=== PATIENT | female | born 1995 | race Caucasian/White ===

== ENCOUNTER 2017-07-14 13:13 | Emergency (ER) | payer OTHER, BC ==
[~2017-07-14] VITALS: Ht 167.6 cm; Wt 70.3 kg
[~2017-07-14 13:13] MED LIST: CYCL5TAB PO; HYDR-79 PO
[2017-07-14] MEDS ORDERED: 0.9 % SODIUM CHLORIDE 10 ML DISP.SYRIN. IV PRN (13:30)
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
[2017-07-14 13:54] LABS: BASO % 0 % (0-3); EOS # 0.1 x10^3/uL (0.0-0.7); EOS % 1 % (0-3); LYMPH # 1.6 x10^3/uL (1.0-4.8); LYMPH % 22 % (24-48); MEAN CORPUSCULAR HEMOGLOBIN 31 pg (25-35); MEAN CORPUSCULAR HGB CONC 34 g/dL (31-37); MEAN CORPUSCULAR VOLUME 91 fL (79-100); MONO # 0.6 x10^3/uL (0.0-1.1); MONO % 8 % (0-9); NEUT % 69 % (31-73); PLATELET COUNT 207 x10^3/uL (140-400); RED BLOOD COUNT 4.52 x10^6/uL (3.50-5.40); RED CELL DISTRIBUTION WIDTH 13.6 % (11.5-14.5); WHITE BLOOD COUNT 7.3 x10^3/uL (4.0-11.0)
[2017-07-14] MEDS ORDERED: IV NORMAL SALINE 1,000ML 1,000 ML IV SCH (14:00)
[2017-07-14] MEDS ORDERED: HYDROmorphone PF 2 MG/ML VIAL IV/SQ PRN (14:00)
[2017-07-14] MEDS ORDERED: ONDANSETRON PF 4 MG/2 ML VIAL. IV ONE (14:00)
[2017-07-14] MEDS ORDERED: IOHEXOL 300 MG/ML 75 ML VIAL. IV ONE (14:00)
[2017-07-14 14:08] LABS: ALBUMIN 3.8 g/dL (3.4-5.0); CREATININE 0.8 mg/dL (0.6-1.0); DIRECT BILIRUBIN 0.1 mg/dL (0.0-0.2); GFR 91.4; POTASSIUM 4.1 mmol/L (3.5-5.1); TOTAL BILIRUBIN 0.4 mg/dL (0.2-1.0); TOTAL PROTEIN 7.3 g/dL (6.4-8.2)
[2017-07-14 14:27] LABS: AMPHETAMINE/METHAMPHETAMINE NEG (NEG); BARBITURATES NEG (NEG); BENZODIAZEPINES NEG (NEG); CANNABINOIDS NEG (NEG); COCAINE NEG (NEG); METHADONE NEG (NEG); OPIATES NEG (NEG); PHENCYCLIDINE NEG (NEG)
[2017-07-14 14:28] LABS: BACTERIA,URINE FEW /HPF (0-FEW); BILIRUBIN,URINE NEG (NEG); CLARITY,URINE HAZY; COLOR,URINE YELLOW; GLUCOSE,URINE NEG (NEG); NITRITE,URINE NEG (NEG); SQUAMOUS EPITHELIAL CELL,UR MOD /LPF; UROBILINOGEN,URINE 0.2 mg/dL (0.2 mg/dL)
[2017-07-14 14:29] LABS: AMORPHOUS SEDIMENT,UR PRESENT /HPF
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
[2017-07-14] MEDS ORDERED: METH-38 PO (14:57)
[2017-07-14] MEDS ORDERED: HYDR-2758 PO (14:57)
[2017-07-14] MEDS ORDERED: NAPR275T59 PO (14:57)
[2017-07-14 15:00] VITALS: BP 135/88
== END 2017-07-14 15:03 | disposition home or self-care (01) ==
LOC: ER 13:13
DX: S33.5XXA Sprain of ligaments of lumbar spine, initial encounter (principal); S23.3XXA Sprain of ligaments of thoracic spine, initial encounter; S30.1XXA Contusion of abdominal wall, initial encounter; Z88.2 Allergy status to sulfonamides; Z88.0 Allergy status to penicillin; Z88.1 Allergy status to other antibiotic agents; Z88.8 Allergy status to other drugs, medicaments and biological substances; V43.53XA Car driver injured in collision with pick-up truck in traffic accident, initial encounter; Y93.89 Activity, other specified; Y92.411 Interstate highway as the place of occurrence of the external cause; Y99.8 Other external cause status
CPT/HCPCS: 36415; 72128; 74177; 80048; 80076; 80307; 81001; 81025; 83690; 85025; 86850; 86900; 86901; 96361; 96374; 96375; 99285; G0480; J1170; J2405; Q9967; G0479; J7030

== ENCOUNTER → 2017-07-23 | Outpatient (CLI) | payer OTHER, BC ==
[2017-07-14 15:00] VITALS: BP 135/88
[~2017-07-23] MED LIST changes: +HYDR-2758 PO; +METH-38 PO; +NAPR275T59 PO
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
== END | disposition home or self-care (01) ==
LOC: DXRADRC 09:52
PROVIDERS: ATTEND Nurse Practitioner Family
DX: R07.81 Pleurodynia (principal); V89.2XXA Person injured in unspecified motor-vehicle accident, traffic, initial encounter; Y93.89 Activity, other specified; Y92.89 Other specified places as the place of occurrence of the external cause; Y99.8 Other external cause status
CPT/HCPCS: 71111

== ENCOUNTER → 2017-09-09 | Outpatient (CLI) | payer BC ==
--- NOTE | 2017-09-09 13:44 | RAD ---
Indication: Prolonged use of Doppler. Bone mineral analysis of the lumbar spine and right forearm was performed. Bone mineral density of the lumbar spine from L1 to L4 is 1.296 with a T score of 1.0. The bone mineral density of the radius is 0.456 with a T score -1.9. 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
== END | disposition home or self-care (01) ==
LOC: DXRAD 12:50
PROVIDERS: ATTEND Obstetrics & Gynecology
DX: M85.88 Other specified disorders of bone density and structure, other site (principal)
CPT/HCPCS: 77080

== ENCOUNTER 2019-01-29 01:58 | Emergency (ER) | payer BC, OTHER ==
[~2019-01-29] VITALS: Ht 162.6 cm; Wt 82.0 kg
[~2019-01-29 01:58] MED LIST changes: +HYDR-1179 PO; +HYDR-2155 PO; -HYDR-2758 PO; -HYDR-79 PO
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
[2019-01-29] MEDS ORDERED: MVI, ADULT NO.4 WITH VIT K 10 ML, FOLIC ACID SYRINGE for ER 1 MG, THIAMINE INJ 100 MG i... IV ONE ×4 (02:15)
[2019-01-29] MEDS ORDERED: THIAMINE 200 MG/2 ML VIAL. IV ONE (02:28)
[2019-01-29] MEDS ORDERED: FOLIC ACID 5 MG/ML SYRINGE for ER IV ONE (02:29)
[2019-01-29] MEDS ORDERED: MVI, ADULT NO.4 WITH VIT K 10 ML VIAL IV ONE (02:29)
[2019-01-29 02:50] LABS: BASO % 1 % (0-3); EOS # 0.1 x10^3/uL (0.0-0.7); EOS % 2 % (0-3); HEMATOCRIT 40.9 % (36.0-47.0); HEMOGLOBIN 13.9 g/dL (12.0-15.5); LYMPH # 1.8 x10^3/uL (1.0-4.8); LYMPH % 29 % (24-48); MEAN CORPUSCULAR HEMOGLOBIN 32 pg (25-35); MEAN CORPUSCULAR HGB CONC 34 g/dL (31-37); MEAN CORPUSCULAR VOLUME 94 fL (79-100); MONO # 0.4 x10^3/uL (0.0-1.1); MONO % 7 % (0-9); NEUT # 3.7 x10^3uL (1.8-7.7); NEUT % 62 % (31-73); PLATELET COUNT 164 x10^3/uL (140-400); RED BLOOD COUNT 4.35 x10^6/uL (3.50-5.40); RED CELL DISTRIBUTION WIDTH 12.6 % (11.5-14.5)
[2019-01-29 02:55] LABS: AMPHETAMINE/METHAMPHETAMINE NEG (NEG); BARBITURATES NEG (NEG); BENZODIAZEPINES NEG (NEG); CANNABINOIDS POS (NEG); COCAINE NEG (NEG); METHADONE NEG (NEG); OPIATES NEG (NEG); PHENCYCLIDINE NEG (NEG)
[2019-01-29 03:00] LABS: CALCIUM 8.9 mg/dL (8.5-10.1); CREATININE 0.8 mg/dL (0.6-1.0); DIRECT BILIRUBIN 0.1 mg/dL (0.0-0.2); GFR 90.5; MAGNESIUM 1.9 mg/dL (1.8-2.4); POTASSIUM 3.3 mmol/L (3.5-5.1); TOTAL BILIRUBIN 0.4 mg/dL (0.2-1.0); TOTAL PROTEIN 7.5 g/dL (6.4-8.2)
[2019-01-29 03:11] LABS: BILIRUBIN,URINE NEG (NEG); CLARITY,URINE CLEAR; COLOR,URINE YELLOW; GLUCOSE,URINE NEG (NEG)
[2019-01-29 03:12] LABS: BACTERIA,URINE FEW /HPF (0-FEW); NITRITE,URINE NEG (NEG); RBC,URINE OCC /HPF (0-2); SQUAMOUS EPITHELIAL CELL,UR FEW /LPF; UROBILINOGEN,URINE 0.2 mg/dL (0.2 mg/dL)
[2019-01-29 03:41] VITALS: BP 108/68
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
[2019-01-29] MEDS ORDERED: POTASSIUM CHLORIDE 20 MEQ/15 ML ORAL LIQUID. PEG ONE (04:00)
[2019-01-29] MEDS ORDERED: oxyCODONE/APAP 5/325 1 TAB TABLET PO ONE (04:00)
--- NOTE | 2019-01-29 06:47 | EKG ---
[address] [address] Test Date: 2019-01-29 Test Time: 02:36:41 Pat Name: MARY MOSCOSO Department: Room: Gender: F [employer]: MASON : 1995 Requested By: MING BAIRD Order Number: [id number] Reading MD: Tayo Sutton MD Measurements Intervals [place] Rate: 95 P: 36 AR: 164 QRS: -7 QRSD: 92 T: 41 QT: 368 QTc: 466 Interpretive Statements SINUS RHYTHM Electronically Signed On 02-23-2019 15:00:08 CDT by Tayo Sutton MD
--- NOTE | 2019-01-29 08:13 | RAD ---
Two-view abdomen radiographs 01/29/2019 CLINICAL HISTORY: Abdominal pain. Two AP supine and an AP erect digital radiographs of the abdomen/pelvis were obtained. The lung bases are clear. The abdominal bowel gas pattern is nonobstructive. A small calcification is seen within the left pelvis consistent with a phlebolith. No radiopaque calculus is seen. Minimal S-shaped curvature of the thoracolumbar spine is noted. The osseous structures are grossly intact. IMPRESSION: No acute abnormality is seen. Electronically signed by: Luis Vides MD (01/29/2019 8:11 AM) [facility]
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
== END 2019-01-29 04:15 | disposition home or self-care (01) ==
LOC: ER 01:58
DX: S80.02XA Contusion of left knee, initial encounter (principal); R42 Dizziness and giddiness; E87.6 Hypokalemia; Z72.0 Tobacco use; F10.10 Alcohol abuse, uncomplicated; Z88.2 Allergy status to sulfonamides; Z88.1 Allergy status to other antibiotic agents; Z88.8 Allergy status to other drugs, medicaments and biological substances; Y90.9 Presence of alcohol in blood, level not specified; V89.2XXA Person injured in unspecified motor-vehicle accident, traffic, initial encounter; Y93.89 Activity, other specified; Y92.89 Other specified places as the place of occurrence of the external cause; Y99.8 Other external cause status
CPT/HCPCS: 36415; 70450; 71046; 72125; 74021; 80048; 80076; 80307; 81001; 81025; 83735; 85025; 85610; 85730; 93005; 96365; 96366; 99285; G0480; J7120

== ENCOUNTER 2019-03-21 12:27 | Emergency (ER) | payer BC ==
[~2019-03-21] VITALS: Ht 162.6 cm; Wt 79.4 kg
[2019-03-21] MEDS ORDERED: ONDANSETRON PF 4 MG/2 ML VIAL. ONE (12:37)
[2019-03-21] MEDS ORDERED: FAMOTIDINE 20 MG/2 ML VIAL ONE (12:37)
[2019-03-21] MEDS ORDERED: KETOROLAC 60 MG/2 ML VIAL. IM ONE (13:10)
[2019-03-21] MEDS: ONDANSETRON PF 4 MG/2 ML VIAL. IV ONE (13:13)
[2019-03-21] MEDS: IV NORMAL SALINE 1,000ML 1,000 ML IV SCH (13:13)
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
[2019-03-21 13:18] LABS: BASO % 0 % (0-3); EOS # 0.1 x10^3/uL (0.0-0.7); EOS % 1 % (0-3); HEMATOCRIT 42.9 % (36.0-47.0); HEMOGLOBIN 14.4 g/dL (12.0-15.5); LYMPH # 1.6 x10^3/uL (1.0-4.8); LYMPH % 22 % (24-48); MEAN CORPUSCULAR HEMOGLOBIN 32 pg (25-35); MEAN CORPUSCULAR HGB CONC 34 g/dL (31-37); MEAN CORPUSCULAR VOLUME 95 fL (79-100); MONO # 0.6 x10^3/uL (0.0-1.1); MONO % 9 % (0-9); NEUT # 5.2 x10^3uL (1.8-7.7); NEUT % 68 % (31-73); PLATELET COUNT 198 x10^3/uL (140-400); RED BLOOD COUNT 4.53 x10^6/uL (3.50-5.40); RED CELL DISTRIBUTION WIDTH 12.6 % (11.5-14.5); WHITE BLOOD COUNT 7.6 x10^3/uL (4.0-11.0)
[2019-03-21 13:30] LABS: ALBUMIN 3.9 g/dL (3.4-5.0); ALBUMIN/GLOBULIN RATIO 1.1 (1.0-1.7); CALCIUM 9.4 mg/dL (8.5-10.1); CREATININE 0.7 mg/dL (0.6-1.0); GFR 105.6; TOTAL BILIRUBIN 0.5 mg/dL (0.2-1.0); TOTAL PROTEIN 7.6 g/dL (6.4-8.2)
[2019-03-21] MEDS ORDERED: KETOROLAC 30 MG/ML VIAL. IV ONE (13:30)
[2019-03-21] MEDS: IOHEXOL 300 MG/ML 75 ML VIAL. IV ONE (13:55)
[2019-03-21 13:59] LABS: BACTERIA,URINE 0 /HPF (0-FEW); BILIRUBIN,URINE NEG (NEG); CLARITY,URINE CLOUDY; COLOR,URINE YELLOW; GLUCOSE,URINE NEG (NEG); NITRITE,URINE NEG (NEG); RBC,URINE >40 /HPF (0-2); SQUAMOUS EPITHELIAL CELL,UR OCC /LPF; UROBILINOGEN,URINE 0.2 mg/dL (0.2 mg/dL)
--- NOTE | 2019-03-21 14:51 | RAD ---
CT ABD PELV W/ IV CONTRST ONLY Indication: Right lower quadrant abdominal pain. Exposure: One or more of the following individualized dose reduction techniques were utilized for this examination: 1. Automated exposure control 2. Adjustment of the mA and/or kV according to patient size 3. Use of iterative reconstruction technique. Technique: Intravenous contrast was given. No oral contrast per request. COMPARISON: None are currently available. Findings: Mild linear markings in the lung bases compatible with mild atelectasis. Tiny subcentimeter lesion at the upper right lobe of liver is too small to characterize but would most commonly be benign. Pancreas is difficult to delineate from unopacified bowel but no obvious abnormality. Kidneys demonstrate symmetric enhancement without dominant mass or hydronephrosis. Spleen is mildly enlarged at 12.3 cm. No evidence of adrenal mass. No calcified gallstone. Aorta is nonaneurysmal. No pathologic lymph node enlargement is seen. No significant small bowel distention. No evidence of acute colitis. A structure immediately inferior to the cecum probably represents a normal appendix with some intraluminal gas. This is best seen on the sagittal reconstructions. There is also some faint intraluminal density may represent contrast from a prior radiology procedure or less likely a very small appendicolith. No gross inflammatory type stranding or fluid in the expected location of the appendix. No evidence of pneumoperitoneum. No evidence of ascites. No evidence of a pelvic mass. Urinary bladder appears unremarkable. Vertebral body height and alignment are intact. No aggressive bone destruction. Although only barely included, there is asymmetric breast density less on the left. IMPRESSION: 1. No definite acute findings. A structure just below the cecum which may represent a normal appendix is identified on the sagittal reconstructed images. 2. Borderline splenomegaly. 3. Asymmetric breast density, only barely included. Electronically signed by: Toni Don MD (03/21/2019 2:48 PM) [facility]
[2019-03-21] MEDS ORDERED: METH4TAB2 PO (15:22)
[2019-03-21 15:27] VITALS: BP 132/56
== END 2019-03-21 15:28 | disposition home or self-care (01) ==
LOC: ER 12:27
DX: G89.29 Other chronic pain (principal); M54.5 Low back pain; R10.31 Right lower quadrant pain; F41.9 Anxiety disorder, unspecified; F32.9 Major depressive disorder, single episode, unspecified; Z88.2 Allergy status to sulfonamides; Z88.1 Allergy status to other antibiotic agents; Z88.0 Allergy status to penicillin; Z88.8 Allergy status to other drugs, medicaments and biological substances
CPT/HCPCS: 36415; 74177; 80053; 81001; 81025; 83690; 85025; 87086; 96374; 99285; J2405; Q9967; J7030

== ENCOUNTER → 2020-07-05 | Outpatient (CLI) | payer BC ==
[~2020-07-05] MED LIST changes: +METH4TAB2 PO
--- NOTE | 2020-07-05 09:31 | RAD ---
LUMBAR SPINE MIN 4V History: Low back pain Comparison: CT abdomen pelvis exam March 21, 2019 Findings: 5 views of the lumbar spine are submitted. There is mild levoscoliosis centered upon the mid lumbar spine. Vertebral body stature and AP alignment are maintained. Intervertebral disc spaces are overall maintained. There are some small radiopacities in the superior abdomen bilaterally which are otherwise difficult to characterize location. There are likely phleboliths in the bilateral pelvis. Impression: 1. There is mild lumbar levoscoliosis. 2. There are some small radiopacities in the superior abdomen of uncertain location, probably not in the kidney although very small gallstones within the difficult to entirely exclude. Electronically signed by: Joon Moore MD (07/05/2020 9:28 AM) [facility]
== END ==
LOC: PMG 08:58
PROVIDERS: ATTEND Family Medicine
DX: M41.86 Other forms of scoliosis, lumbar region (principal)
CPT/HCPCS: 72110

== ENCOUNTER → 2020-10-01 | Outpatient (CLI) | payer BC ==
[2020-10-01 16:12] LABS: BASO % 0 % (0-3); EOS # 0.2 x10^3/uL (0.0-0.7); EOS % 3 % (0-3); HEMATOCRIT 39.3 % (36.0-47.0); HEMOGLOBIN 13.3 g/dL (12.0-15.5); LYMPH # 2.1 x10^3/uL (1.0-4.8); LYMPH % 28 % (24-48); MEAN CORPUSCULAR HEMOGLOBIN 32 pg (25-35); MEAN CORPUSCULAR HGB CONC 34 g/dL (31-37); MEAN CORPUSCULAR VOLUME 95 fL (79-100); MONO # 0.6 x10^3/uL (0.0-1.1); MONO % 8 % (0-9); NEUT # 4.7 x10^3uL (1.8-7.7); NEUT % 61 % (31-73); PLATELET COUNT 203 x10^3/uL (140-400); RED BLOOD COUNT 4.14 x10^6/uL (3.50-5.40); RED CELL DISTRIBUTION WIDTH 13.3 % (11.5-14.5); WHITE BLOOD COUNT 7.7 x10^3/uL (4.0-11.0)
[2020-10-02 17:10] LABS: RUBELLA IGG ANTIBODY 1.16 index (Immune >0.99)
[2020-10-03 12:46] LABS: FREE T4 0.99 ng/dL (0.76-1.46); THYROID STIM HORMONE (TSH) 0.593 uIU/mL (0.358-3.740)
== END ==
LOC: LAB 13:43
PROVIDERS: ATTEND Obstetrics & Gynecology
DX: Z34.91 Encounter for supervision of normal pregnancy, unspecified, first trimester (principal); Z3A.00 Weeks of gestation of pregnancy not specified
CPT/HCPCS: 36415; 81220; 84439; 84443; 85025; 85660; 86592; 86703; 86762; 86787; 86803; 86850; 86900; 86901; 87340

== ENCOUNTER → 2020-10-31 | Outpatient (CLI) | payer BC ==
--- NOTE | 2020-10-31 16:44 | RAD ---
EXAM: Ultrasound OB Greater than 14 weeks INDICATION: Reason: Encounter for related exam in 2nd trimester / Spl. Instructions: / His tory: TECHNIQUE: Real-time obstetrical ultrasound was performed with permanent freeze-frame documentation. COMPARISON: None. FINDINGS: POSITION: Breech HEART RATE: 137 bpm MAGNUS: 11.2 cm PLACENTA: Posterior CERVICAL LENGTH: 5.3 cm MATERNAL UTERUS: Unremarkable. MATERNAL ADNEXA: Unremarkable. AGE/DATES: Gestational Age by LMP: 15 weeks 1 day Gestation Age by US: 15 weeks 3 days EDC by LMP: 04/23/2021 EDC by US: 04/21/2021 WEIGHT: Not estimated PERCENTILE WEIGHT: Not estimated BIOMETRIC PARAMETERS: BPD: 3.1 cm corresponding with 15 weeks 5 days HC: 11.2 cm corresponding with 15 weeks 3 days AC: 9.6 cm corresponding with 15 weeks 5 days FL: 1.6 cm corresponding with 14 weeks 5 days ANATOMY: Limited anatomy evaluation shows unremarkable stomach and kidneys. IMPRESSION: Normal OB ultrasound demonstrating a single viable fetus in breech position. Estimated gestational ag e of 15 weeks 3 days and EDC of April 21, 2021. Electronically signed by: Sharri Osborn MD (10/31/2020 4:42 PM) [id number]
== END ==
LOC: US 12:53
PROVIDERS: ATTEND Obstetrics & Gynecology
DX: O32.1XX0 Maternal care for breech presentation, not applicable or unspecified (principal); Z3A.15 15 weeks gestation of pregnancy
CPT/HCPCS: 76805

== ENCOUNTER → 2022-02-13 | Outpatient (CLI) | payer OTHER ==
--- NOTE | 2022-02-13 16:06 | RAD ---
XR LUMBAR SPINE 2-3V History: Reason: LBP / Spl. Instructions: / History: Technique: 3 views lumbar spine. Comparison: None. Findings: Mild upper curvature the lumbar spine centered at L2-L3. Normal vertebral body height. No acute fract ure. Mild degenerative changes of the lower thoracic spine with endplate changes and disc space narro wing. Mild disc space narrowing of the lumbar spine most prominent L2-L3 and L5-S1. Impression: 1. Mild thoracolumbar spondylosis with leftward curvature. Electronically signed by: Cornelius Monteiro DO (02/13/2022 4:04 PM) [id number]
== END ==
LOC: RAD 10:47
PROVIDERS: ATTEND Family Medicine
DX: S39.012A Strain of muscle, fascia and tendon of lower back, initial encounter (principal); M47.815 Spondylosis without myelopathy or radiculopathy, thoracolumbar region; M48.07 Spinal stenosis, lumbosacral region; X58.XXXA Exposure to other specified factors, initial encounter; Y93.89 Activity, other specified; Y92.89 Other specified places as the place of occurrence of the external cause; Y99.8 Other external cause status
CPT/HCPCS: 72100